=== PATIENT | male | born 1995 | race Two or more races ===

== ENCOUNTER 2017-05-24 18:11 | Emergency (ER) | payer OTHER ==
[2017-05-24 18:23] VITALS: BP 136/78; PULSE 62; TEMP 98.4; BMI 29.0
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
== END 2017-05-24 19:01 | disposition home or self-care (01) ==
LOC: JERFT 18:11
DX: S39.012A Strain of muscle, fascia and tendon of lower back, initial encounter (principal); V43.52XA Car driver injured in collision with other type car in traffic accident, initial encounter; Y92.414 Local residential or business street as the place of occurrence of the external cause; Y93.89 Activity, other specified; Y99.8 Other external cause status
CPT/HCPCS: 99281-25